=== PATIENT | male | born 1985 | race Caucasian/White ===

== ENCOUNTER 2016-05-10 17:14 | Inpatient (IN) | payer SELFPAY ==
[2016-05-10] MEDS ORDERED: traMADol HCL 50 MG TAB PO ONE (17:56)
[2016-05-10] MEDS ORDERED: KETOROLAC TROMETHAMINE INJ 60 MG/2 ML VIAL IM ONE (17:56)
[2016-05-10] MEDS ORDERED: KETOROLAC TROMETHAMINE INJ 30 MG/ML VIAL IV ONE (17:59)
--- NOTE | 2016-05-10 17:59 | ED.PDOC ---
History of Present Illness - General Chief Complaint: Dental/Mouth Stated Complaint: Pain/swelling after wisdom tooth removal Time Seen by Provider: 05/10/16 17:30 Source: patient, RN notes reviewed, Vital Signs reviewed Exam Limitations: no limitations - History of Present Illness Initial Comments: Patient reports he had his L lower wisdom tooth removed on Sunday05/07/16. Since then he has had progressively worsening pain and swelling. He is having a hard time opening his mouth due to the pain. Also having pain with swallowing and noticed his Lymphnodes are swollen on the L. Timing/Duration: gradual Severity: severe EENT Location: mouth, throat, dental Prearrival Treatment: over the counter meds - Has been alternating Ibuprofen 800mg and Tylenol 1gm Q 4 hours without relief. Improving Factors: nothing Worsening Factors: eating, other - swallowing, opening his mouth Associated Symptoms: facial pain/swelling Allergies/Adverse Reactions: Allergies Hydrocodone Allergy (Verified 05/10/16 18:05) codiene Allergy (Intermediate, Uncoded 09/12/15 14:58) Home Medications: Ambulatory Orders NK [NK] 09/12/15 Review of Systems - Review of Systems Constitutional: Denies: chills, diaphoresis, fever, malaise EENTM: States: see HPI, throat pain, throat swelling, mouth pain, mouth swelling Respiratory: States: no symptoms reported. Denies: short of breath Cardiology: States: no symptoms reported Gastrointestinal/Abdominal: Denies: nausea, vomiting Neurological: States: no symptoms reported. Denies: headache Past Medical History (General) - Patient Medical History Hx Seizures: No Hx Stroke: No Hx Dementia: No Hx Asthma: Yes - as a child Hx of COPD: No Hx Cardiac Disorders: No Hx Congestive Heart Failure: No Hx Pacemaker: No Hx Hypertension: No Hx Thyroid Disease: No Hx Diabetes: No Hx Gastroesophageal Reflux: No Hx Renal Disease: No Hx Cancer: No Hx Hepatitis C: No Hx MRSA: Yes - Wound 2015 MRSA Source:: Wound - Vaccination History Hx Tetanus, Diphtheria Vaccination: No Hx Influenza Vaccination: No Hx Pneumococcal Vaccination: No - Social History Hx Tobacco Use: Yes Hx Chewing Tobacco Use: Yes Hx Alcohol Use: Yes Hx Substance Use: No Hx Substance Use Treatment: No Hx Depression: No - Female History Patient : No Family Medical History - Family History Mother Family History: No Known Living Status: Still Living Hx Family Hypertension: Yes Physical Exam - Physical Exam General Appearance: Alert, No apparent distress, Obvious distress, Well Developed, Well Groomed, Well Hydrated, Well Nourished Ear Exam: left ear: auricle normal, canal normal, TM normal Throat Exam: other - Swelling, erythema and tenderness L peritonsilar area Neck: full range of motion, lymphadenopathy (L) - tender to palpation Cardiovascular/Respiratory: no respiratory distress Neurologic: alert, normal mood/affect, oriented x 3 Skin Exam: normal color, warm/dry Progress - Progress Progress: 05/10/16 19:18 Patient has a rapidly developing peritonsilar abscess. Will start IV Clindamycin and admit overnight for further doses of IV antibiotic, pain control and observation. Patient is agreeable. Discussed with Oksana Mc NP, Hospitalist. - EKG/XRAY/CT CT Ordered: Yes - neck: developing L peritonsilar abscess Departure - Departure Clinical Impression: Peritonsillar abscess Time of Disposition: 19:20 Disposition: Admit Patient Condition: Fair Home Medications: Ambulatory Orders NK [NK] 09/12/15 Decision To Admit - Decistion To Admit Decision to Admit Reason: Admit from ER - rapidly developing peritonsilar abscess - IV antibiotics and observation
--- NOTE | 2016-05-10 19:10 | CT ---
PROCEDURE: Soft Tissue Neck w/Contrast CLINICAL HISTORY: 30 years Male peritonsillar abscess s/p L lower wisdom tooth removal COMPARISON: None. TECHNIQUE: Contiguous axial images obtained through the neck following IV contrast. Reformatted images obtained. This exam was performed according to our department optimization program which includes automated exposure control, adjustment of the mA and/or kv according to patient size and/or use of iterative reconstruction technique. FINDINGS: The visualized intracranial structures and post septal orbits appear grossly unremarkable. The parotid glands, submandibular glands and thyroid gland appear unremarkable. The lung apices are clear. There is mild stranding around the lower pterygoid and masseter muscles on the left which could be from edema/cellulitis. There is enlargement of the palatine tonsillar tissues greater on the left. There is moderate narrowing of the nasopharynx and mild narrowing of the oropharynx secondary to mass effect. The left vallecula is nondistended likely from edema. There is mild low density in the left palatine tonsillar tissues likely from edema. There is a more well-defined low density collection in the left peritonsillar region measuring 1.2 cm in AP diameter by 0.4 cm in transverse diameter by 0.7 cm in height which could represent a developing abscess. There are changes from recent removal of the left mandibular wisdom tooth. Scattered lymph nodes in the neck likely reactive. No enlarged nodes or mass lesions are identified. Mild mucosal thickening within the maxillary sinuses and within some ethmoid air cells. IMPRESSION: Changes from recent removal of the left mandibular wisdom tooth. There is mild stranding in the soft tissues around the lower pterygoid and masseter muscles on the left likely from edema/cellulitis. There is enlargement of the palatine tonsillar tissues greater on the left with low density suggesting edema. There is a more well-defined area of low density in the left peritonsillar region suggesting a developing abscess. Electronically signed by: Taurus Morfin MD 05/10/2016 7:09 PM CDT
[2016-05-10] MEDS ORDERED: CLINDAMYCIN IV 600MG 600 MG in PREMIX BAG 1 BAG IVPB ONE (19:13)
[2016-05-10] MEDS ORDERED: CLINDAMYCIN IV 600MG 50 ML IVPB ONE (19:15)
[2016-05-10] MEDS ORDERED: fentaNYL CITRATE INJ 50 MCG/ML AMP IV ONE (19:18)
--- NOTE | 2016-05-10 20:15 | HP ---
SUPERVISING PHYSICIAN: GWEN SOUTH MD CHIEF COMPLAINT: Left jaw pain. HISTORY OF PRESENT ILLNESS: This is a 30 year-old male patient who had his left lower jaw wisdom tooth extracted on Sunday per Dr. Lewis in [place]. Over the last day or so, he has had pain and swelling in his left jaw that has increased to the point today he had a hard time opening his mouth and had a difficult swallowing and the pain had become intractable. He called Dr. Lewis' s office and they could not see him until Sunday so he came to the Emergency Room where he was evaluated. In the Emergency Room he was found to have a white count of 19.4 with a hemoglobin of 15.5 and hematocrit of 45.2. His sodium was 138, potassium 3.9, chloride 102, C02 of 29, BUN 9, creatinine 0.88 and blood sugar was 103. Bilirubin was slightly elevated at 1.2. A soft tissue neck CT per radiology interpretation states changes from recent removal of the left mandibular wisdom tooth, there is mild stranding in the soft tissues around the lower pterygoid and masseter muscles on the left likely from edema or cellulitis. There is an enlargement of the palatine tonsillar tissues greater on the left with low density suggesting edema and there is a more well- defined area of low density in the left paratonsillar region suggesting a developing abscess. He was given clindamycin in the Emergency Room and I was called for hospital admission. PAST MEDICAL HISTORY: 1. MRSA of the right knee in 2014. 2. Broken left arm as a child. PAST SURGICAL HISTORY: None. CURRENT MEDICATIONS: No outpatient medications. ALLERGIES: HYDROCODONE FAMILY HISTORY: SOCIAL HISTORY: He smokes one pack of cigarettes daily. He drinks a 12-pack of beer 5 to 6 days per week. He denies any illicit drug use. He is . He works at [employer]. REVIEW OF SYSTEMS: GENERAL: Positive for fever, denies fatigue or chills. HEENT: Positive for sinus drainage and left ear pain. Denies vision changes. RESPIRATORY: Denies shortness of breath, coughing or wheezing. CARDIAC: Denies chest pain, tachycardia or palpitations. ABDOMEN: Denies abdominal pain , nausea or vomiting or diarrhea. NEUROLOGICAL: Denies seizure, headache or dizziness. PHYSICAL EXAMINATION: VITAL SIGNS: Temperature 99.1. Pulse 96. Blood pressure 132/85. Respiratory rate 20. O2 saturation 95% on room air. GENERAL: This is a 30-year-old male patient who is lying in his hospital bed. He is in no acute distress. HEENT: Normocephalic, atraumatic. Pupils are equal and reactive. He does have swelling to the left lower mandible as well as it is warm to touch. It is also erythematous and tender to palpation. NECK: Supple without mass. No jugular venous distention. RESPIRATORY: Clear to auscultation bilaterally. CARDIAC: Regular rate and rhythm. ABDOMEN: Soft, nondistended, nontender. Bowel sounds are positive. EXTREMITIES: No cyanosis, clubbing or edema. NEUROLOGIC: Awake, alert and oriented times three. ASSESSMENT: 1. Cellulitis of the left lower jaw status post left mandibular wisdom tooth extraction. 2. Possible developing left peritonsillar abscess. 3. Left lower mandible jaw pain. 4. Tobacco abuse. 5. ETOH abuse. PLAN: We will admit the patient to the hospital. We will continue with IV fluids until tomorrow morning. Blood cultures were not obtained, so I ordered blood cultures as well as lactic acid. I will continue fentanyl for his pain at least overnight. I will also continue the clindamycin. I have started a proton pump inhibitor for ulcer prophylaxis and sequential compression devices for deep venous thrombosis prophylaxis. I will call Dr. Borrego in the morning to see if he can be seen in his clinic upon discharge. Will also need to talk to ENT. I have consulted [employer] for financial help. We will continue to monitor the patient closely and followup as needed. Dr. South is the collaborating physician and available for consultation. #[id number] [facility]
[2016-05-10] MEDS ORDERED: ACETAMINOPHEN 325 MG TAB PO PRN (21:20)
[2016-05-10] MEDS ORDERED: PANTOPRAZOLE SODIUM IV 40 MG VIAL IV SCH (21:30)
[2016-05-10] MEDS: KCL 20 MEQ/NS 1,000 ML IVS PRN (21:40)
[2016-05-10] MEDS: SODIUM CHLORIDE 0.9% (FLUSH) 10 ML SYG IV PRN (21:41)
[2016-05-10] MEDS: IV SET AND CAP CHANGE INJ INJ SCH (21:41)
[2016-05-10] MEDS: fentaNYL CITRATE INJ 50 MCG/ML AMP IV PRN (21:50)
[2016-05-11] MEDS: fentaNYL CITRATE INJ 50 MCG/ML AMP IV PRN ×10 (00:45→22:39)
[2016-05-11] MEDS ORDERED: CLINDAMYCIN IV 900MG 50 ML IVPB ONE ×4 (02:42→19:37)
[2016-05-11] MEDS: CLINDAMYCIN IV 900MG 900 MG in PREMIX BAG 1 BAG IVPB SCH ×3 (02:43→18:38)
[2016-05-11] MEDS: KCL 20 MEQ/NS 1,000 ML IVS PRN (06:30)
[2016-05-11] MEDS ORDERED: SODIUM CHLORIDE 0.9% (FLUSH) 10 ML SYG IV SCH (09:00)
[2016-05-11] MEDS ORDERED: DEXAMETHASONE INJ 10 MG/ML VIAL IV ONE (09:23)
[2016-05-11] MEDS ORDERED: SODIUM CHL 0.9% 100ML MINI-BAG 100 ML IVPB ONE ×4 (09:27→19:38)
[2016-05-11] MEDS ORDERED: AMPICILLIN & SULBACTAM SODIUM 3 GM VIAL ONE ×4 (09:27→19:39)
[2016-05-11] MEDS ORDERED: AMPICILLIN & SULBACTAM SODIUM 3 GM in SODIUM CHL 0.9% 100ML MINI-BAG 100 ML IVPB SCH (09:30)
[2016-05-11] MEDS ORDERED: THIAMINE HCL INJ 100 MG/ML VIAL ONE (10:07)
[2016-05-11] MEDS ORDERED: SODIUM CHLORIDE 0.9% 1000ML 1,000 ML ONE (10:07)
[2016-05-11] MEDS ORDERED: MULTIPLE VITAMIN 10 ML VIAL ONE (10:07)
[2016-05-11] MEDS ORDERED: SODIUM CHLORIDE 0.9% 100ML 100 ML IVPB ONE (10:07)
--- NOTE | 2016-05-11 10:11 | PN ---
SUPERVISING PHYSICIAN: Venkatesh Rodriguez MD DATE: 05/11/16 SUBJECTIVE: The patient is lying in bed. He states the fentanyl does help his pain and he feels like his jaw pain is some better than yesterday, but he continues to have difficulty swallowing as well as he is unable to eat any foods at this time. He denies chest pain, shortness of breath, nausea, vomiting , or diarrhea. OBJECTIVE: VITAL SIGNS: Afebrile. Pulse 89. Blood pressure 116/68. Respiratory rate 20. O2 saturation 96% on room air. HEENT: He continues to have some edema and erythema to the left lower jaw as well as it continues to be warm to touch as well as tender to palpation. LUNGS: Clear to auscultation bilaterally. CARDIAC: Regular rate and rhythm. ABDOMEN: Soft, nontender, nondistended. Bowel sounds are positive. NEUROLOGIC: Awake, alert and oriented times three. LYMPHATIC: He does have an anterior cervical lymph node to the left jaw that is approximately 1 cm in diameter and is tender and mobile. LABORATORY: WBC improved slightly to 15.1, hemoglobin 13.8, hematocrit 40.7. Chemistries are basically within normal limits with the exception that his bilirubin has increased to 1.6. Lactic acid 1.0. Preliminary blood cultures are negative to date. All other labs and films have been reviewed via the EMR. ASSESSMENT: 1. Cellulitis of the left lower jaw status post left mandibular wisdom tooth extraction. 2. Possible developing left peritonsillar abscess. 3. Left lower mandible jaw pain. 4. Tobacco abuse. 5. ETOH abuse. PLAN: We will continue present supportive care and monitoring. I have spoken with Dr. Patrica Monroe, ENT at [facility] in [place]. I discussed his case with her. At this point, she feels surgical intervention is not necessary and at least 48 hours of IV antibiotics is indicated. She agreed that clindamycin was an appropriate antibiotic and we will add Unasyn as well as IV steroids. I also called Dr. Borrego, his dentist in [place], to inform him of the patient's status and he agreed with the plan of care. As stated before, I will add Unasyn to his antibiotic regime. I have also given him 10 mg of Decadron. We will continue with 48 hours of antibiotic treatment. If his condition worsens, we can get another CT and Dr. Monroe will be on in [place] over the weekend and she said she would be glad to accept him to [place] if he needs surgical intervention. I will add a Strep test to his orders and repeat his lab in the morning. We will monitor his cultures closely and followup as needed. Dr. Rodriguez is the collaborating physician and available for consultation. [facility][id number] [facility]
[2016-05-11] MEDS ORDERED: FOLIC ACID INJ 5 MG/ML VIAL ONE (11:21)
[2016-05-11] MEDS: THIAMINE HCL INJ 100 MG in SODIUM CHLORIDE 0.9% 100ML 100 ML IVPB SCH (11:24)
[2016-05-11] MEDS ORDERED: MULTIPLE VITAMIN INJ 10 ML, FOLIC ACID INJ 1 MG in SODIUM CHLORIDE 0.9% 1000ML 1,000 ML IV SCH (14:30)
[2016-05-11] MEDS: AMPICILLIN & SULBACTAM SODIUM 3 GM in SODIUM CHL 0.9% 100ML MINI-BAG 100 ML IVPB SCH ×2 (16:11→21:37)
--- NOTE | 2016-05-11 17:08 | PCM.CORE ---
Physician DVT/VTE - Prophylaxis Currently: Patient already on anticoagulation therapy - Nurse DVT Assessment & Total Each Risk Factor is 1 Point: Obesity (BMI >25) DVT Assessment Score: 1 - 5 or more Very High Risk Treatments: Early Ambulation *, Sequential Compression Device
[2016-05-11] MEDS: DEXAMETHASONE INJ 4 MG/ML VIAL IV SCH (18:07)
[2016-05-11] MEDS ORDERED: PANTOPRAZOLE SODIUM IV 40 MG VIAL ONE (19:37)
[2016-05-11] MEDS ORDERED: PANTOPRAZOLE SODIUM IV 40 MG VIAL IV SCH (21:00)
[2016-05-11] MEDS: SODIUM CHLORIDE 0.9% (FLUSH) 10 ML SYG IV PRN (22:39)
[2016-05-12] MEDS: DEXAMETHASONE INJ 4 MG/ML VIAL IV SCH ×2 (00:19→05:52)
[2016-05-12] MEDS: KCL 20 MEQ/NS 1,000 ML IVS PRN (00:19)
[2016-05-12] MEDS: TEMAZEPAM 15 MG CAP PO PRN (00:25)
[2016-05-12] MEDS: fentaNYL CITRATE INJ 50 MCG/ML AMP IV PRN ×5 (02:18→15:07)
[2016-05-12] MEDS: CLINDAMYCIN IV 900MG 900 MG in PREMIX BAG 1 BAG IVPB SCH ×3 (03:04→18:31)
[2016-05-12] MEDS: AMPICILLIN & SULBACTAM SODIUM 3 GM in SODIUM CHL 0.9% 100ML MINI-BAG 100 ML IVPB SCH ×4 (04:18→22:25)
[2016-05-12] MEDS ORDERED: AMPICILLIN & SULBACTAM SODIUM 3 GM VIAL ONE ×4 (08:17→22:00)
[2016-05-12] MEDS ORDERED: THIAMINE HCL INJ 100 MG/ML VIAL ONE (08:17)
[2016-05-12] MEDS ORDERED: SODIUM CHL 0.9% 100ML MINI-BAG 100 ML IVPB ONE ×4 (08:17→22:00)
[2016-05-12] MEDS ORDERED: SODIUM CHLORIDE 0.9% 100ML 100 ML IVPB ONE (08:17)
[2016-05-12] MEDS ORDERED: CLINDAMYCIN IV 900MG 50 ML IVPB ONE ×3 (08:18→21:58)
[2016-05-12] MEDS: THIAMINE HCL INJ 100 MG in SODIUM CHLORIDE 0.9% 100ML 100 ML IVPB SCH (08:24)
[2016-05-12] MEDS: FOLIC ACID 1 MG TAB PO SCH (14:58)
[2016-05-12] MEDS: THIAMINE HCL 100 MG TAB PO SCH (14:58)
[2016-05-12] MEDS ORDERED: KETOROLAC TROMETHAMINE INJ 60 MG/2 ML VIAL IM ONE (17:13)
[2016-05-12] MEDS: SODIUM CHLORIDE 0.9% (FLUSH) 10 ML SYG IV SCH (21:18)
[2016-05-12] MEDS ORDERED: PANTOPRAZOLE SODIUM TAB 40 MG PO ONE (21:59)
[2016-05-12] MEDS: traMADol HCL 50 MG TAB PO PRN (22:27)
[2016-05-13] MEDS: CLINDAMYCIN IV 900MG 900 MG in PREMIX BAG 1 BAG IVPB SCH ×3 (03:06→18:46)
[2016-05-13] MEDS: traMADol HCL 50 MG TAB PO PRN (03:07)
[2016-05-13] MEDS: SODIUM CHLORIDE 0.9% (FLUSH) 10 ML SYG IV PRN ×4 (03:07→23:19)
[2016-05-13] MEDS: AMPICILLIN & SULBACTAM SODIUM 3 GM in SODIUM CHL 0.9% 100ML MINI-BAG 100 ML IVPB SCH ×4 (04:30→21:57)
[2016-05-13] MEDS: fentaNYL CITRATE INJ 50 MCG/ML AMP IV PRN ×6 (04:40→23:21)
[2016-05-13] MEDS: PANTOPRAZOLE SODIUM TAB 40 MG PO SCH (06:39)
[2016-05-13] MEDS ORDERED: CLINDAMYCIN IV 900MG 50 ML IVPB ONE ×2 (07:29→17:48)
[2016-05-13] MEDS ORDERED: SODIUM CHL 0.9% 100ML MINI-BAG 100 ML IVPB ONE ×3 (07:30→18:19)
[2016-05-13] MEDS ORDERED: AMPICILLIN & SULBACTAM SODIUM 3 GM VIAL ONE ×3 (07:30→18:19)
[2016-05-13] MEDS ORDERED: KETOROLAC TROMETHAMINE INJ 30 MG/ML VIAL ONE (07:49)
[2016-05-13] MEDS ORDERED: KETOROLAC TROMETHAMINE INJ 30 MG/ML VIAL IM ONE (07:55)
[2016-05-13] MEDS: THIAMINE HCL 100 MG TAB PO SCH (09:04)
[2016-05-13] MEDS: FOLIC ACID 1 MG TAB PO SCH (09:04)
--- NOTE | 2016-05-13 09:26 | PN ---
DATE: 05/12/16 SUPERVISING PHYSICIAN: Doug Monroy MD SUBJECTIVE: The patient is sitting up in his bed. He states that he feels so much better than he did yesterday. He says the steroids worked great. He is drinking fluids without problems as well as eating some small amounts of food. We discussed his discharge tomorrow and followup with Dr. Borrego as well as following up with an ENT. OBJECTIVE: VITAL SIGNS: Afebrile. Heart rate 80. Blood pressure 100/65. Respiratory rate 20. O2 saturation 97%. HEENT: He continues to have some edema to the left lower jaw as well as in his oropharynx on that left lower side. It is ammonia box tender to palpation but much improved since yesterday. LUNGS: Clear to auscultation bilaterally. CARDIAC: Regular rate and rhythm. NEUROLOGIC: Awake, alert and oriented times three. LABORATORY: Chemistry is basically within normal limits with the exception of his glucose which is slightly high at 157. WBCs have slightly increased to 18.8 and his neutrophils of 87.6. Otherwise, his CBC is basically stable. His preliminary blood cultures show no growth. All other labs and films have been reviewed via the EMR. ASSESSMENT: 1. Cellulitis of the left lower jaw status post left mandibular wisdom tooth extraction. 2. Possible developing left peritonsillar abscess. 3. Left lower mandible jaw pain. 4. Tobacco abuse. 5. ETOH abuse. PLAN: We will continue present supportive care and monitoring. He will continue with his present antibiotics. We will plan for discharge tomorrow as long as he has no further complications or increase in swelling. He finished his steroids this morning at 6:00 AM and there is continued swelling there has been no increase in swelling and it is quite painful. He has been taking Fentanyl IV as he is allergic hydrocodone and codeine. We will try to wean him off the Fentanyl as I have started him on Tramadol. I have also given him 1 IM injection of Toradol. We may need to give several additional doses of that prior to discharge. We will need to send him home on at least a week's worth of oral antibiotics. He will need a followup with Dr. Borrego in [place] next week as well as an eng referral after that. We will continue to monitor the patient closely and followup as needed. Dr. Porfirio presley is the collaborating physician and available for consultation. #[id number] [facility]
[2016-05-13] MEDS: SODIUM CHLORIDE 0.9% (FLUSH) 10 ML SYG IV SCH ×2 (09:38→21:56)
[2016-05-13] MEDS ORDERED: DEXAMETHASONE INJ 10 MG/ML VIAL ONE (13:06)
[2016-05-13] MEDS: DEXAMETHASONE INJ 4 MG/ML VIAL IV SCH (13:19)
[2016-05-13] MEDS: KETOROLAC TROMETHAMINE INJ 30 MG/ML VIAL IV SCH ×2 (15:30→21:55)
--- NOTE | 2016-05-13 16:25 | PN ---
DATE: 05/13/16 SUPERVISING PHYSICIAN: Doug Monroy M.D. SUBJECTIVE: The patient is sitting up in his hospital bed. He is in no acute distress. He denies any chest pain, shortness of breath, nausea or vomiting. We are still having some issues with his pain control and the Fentanyl only lasts for about an hour or so and he starts hurting, and the Toradol is markedly better for his pain than any of the narcotics as well as he said that the steroids have helped quite a bit also. OBJECTIVE: Temperature 97.7, pulse rate 81, blood pressure 122/84, respiratory rate 18, O2 sat 92% on room air. HEENT: He still has quite a bit of swelling along that left jaw line. It does continue to be tender to palpation but is somewhat improved since yesterday. He is having less difficulty eating and drinking. RESPIRATORY: Clear to auscultation bilaterally. CARDIAC: Regular rate and rhythm. NEUROLOGIC: He is awake, alert and oriented times three. LABORATORY: White count is slowly coming down, it is at 17.2, hemoglobin 13.3, hematocrit 39.1, platelets 249. Chemistries are within normal limits. Preliminary blood cultures continue to show no growth. MRSA surveillance shows no growth. All other labs and films have been reviewed via the EMR. ASSESSMENT: 1. Cellulitis of the left lower jaw status post left mandibular wisdom tooth extraction. 2. Possible developing left peritonsillar abscess. 3. Left lower mandible jaw pain. 4. Tobacco abuse. 5. ETOH abuse. PLAN: We will continue the present supportive care and monitoring. Will continue with his present antibiotics. He had been put on Tramadol that was fairly ineffective and Toradol worked very well. He will get 4 more scheduled doses of Toradol as well as 2 more additional doses of Decadron. Hopefully the swelling and the pain will be under control by tomorrow and he can be discharged in the next few days. We will continue to monitor the patient closely and followup as needed. Dr. Monroy is the collaborating physician available for consultation. #[id number] [facility]
[2016-05-13] MEDS: IV SET AND CAP CHANGE INJ INJ SCH (21:55)
[2016-05-13] MEDS: TEMAZEPAM 15 MG CAP PO PRN (23:19)
[2016-05-14] MEDS ORDERED: CLINDAMYCIN IV 900MG 50 ML IVPB ONE ×3 (00:01→19:31)
[2016-05-14] MEDS ORDERED: SODIUM CHL 0.9% 100ML MINI-BAG 100 ML IVPB ONE ×4 (00:01→20:01)
[2016-05-14] MEDS ORDERED: AMPICILLIN & SULBACTAM SODIUM 3 GM VIAL ONE ×4 (00:01→20:01)
[2016-05-14] MEDS: SODIUM CHLORIDE 0.9% (FLUSH) 10 ML SYG IV PRN ×6 (00:41→21:49)
[2016-05-14] MEDS: DEXAMETHASONE INJ 4 MG/ML VIAL IV SCH ×2 (00:42→13:31)
[2016-05-14] MEDS: CLINDAMYCIN IV 900MG 900 MG in PREMIX BAG 1 BAG IVPB SCH ×3 (02:49→19:36)
[2016-05-14] MEDS: fentaNYL CITRATE INJ 50 MCG/ML AMP IV PRN ×2 (03:17→09:45)
[2016-05-14] MEDS: KETOROLAC TROMETHAMINE INJ 30 MG/ML VIAL IV SCH ×2 (03:52→09:50)
[2016-05-14] MEDS: AMPICILLIN & SULBACTAM SODIUM 3 GM in SODIUM CHL 0.9% 100ML MINI-BAG 100 ML IVPB SCH ×4 (03:52→21:48)
[2016-05-14] MEDS: PANTOPRAZOLE SODIUM TAB 40 MG PO SCH (06:16)
[2016-05-14] MEDS: traMADol HCL 50 MG TAB PO PRN (08:01)
[2016-05-14] MEDS: THIAMINE HCL 100 MG TAB PO SCH (08:54)
[2016-05-14] MEDS: SODIUM CHLORIDE 0.9% (FLUSH) 10 ML SYG IV SCH ×2 (08:54→20:31)
[2016-05-14] MEDS: FOLIC ACID 1 MG TAB PO SCH (08:54)
[2016-05-14] MEDS ORDERED: KETOROLAC TROMETHAMINE 10 MG TAB PO PRN (10:04)
[2016-05-14] MEDS ORDERED: HYDROcodone 5MG/APAP 325MG 1 EA TAB PO ONE (10:26)
[2016-05-14] MEDS ORDERED: PROCHLORPERAZINE INJ 10 MG/2 ML VIAL IV PRN ×2 (10:26→11:28)
--- NOTE | 2016-05-14 12:35 | PN ---
DATE: 05/14/16 SUPERVISING PHYSICIAN: Doug Monroy M.D. SUBJECTIVE: The patient is sitting up in bed. He is watching television. We had a long discussion about his pain medication. He said the most effective pain relief is from the Toradol. The Tramadol does very little to relieve the pain. The steroids also help a lot. He does not like the Fentanyl but it is the only thing that gives him relief enough to eat, so he usually asks for it before his meals. We discussed at length his adverse reaction to Hydrocodone in the past. He said he has occasionally taken half of a 10/325 Gustavus and does not cause any problems. The problems he has had in the past are mostly due to nausea and a headache. OBJECTIVE: VITAL SIGNS: He is afebrile, heart rate 78, blood pressure 102/66 but it has gotten as high at 150/92 when he was in pain, respiratory rate 20, O2 sat 96% on room air. HEENT: There is still quite a bit of swelling to the lateral left jaw line and it is still quite tender to palpation. He can open his mouth much better than he has been but it is still very difficult with chewing and swallowing due to the pain. RESPIRATORY: Clear to auscultation bilaterally. CARDIAC: Regular rate and rhythm. NEUROLOGIC: Awake, alert and oriented times three. LABORATORY: White count has slightly decreased to 15.7 with neutrophil of 84.9. Metabolic panel is basically within normal limits with the exception of his glucose is slightly elevated most likely due to the steroids. All other labs and films have been reviewed via the EMR. ASSESSMENT: 1. Cellulitis of the left lower jaw status post left mandibular wisdom tooth extraction. 2. Possible developing left peritonsillar abscess. 3. Left lower mandible jaw pain. 4. Tobacco abuse. 5. ETOH abuse. PLAN: He has completed his 3 days of IV Toradol and now we will have to change him to 2 additional days of p.o. Toradol. He will have a max of 8 additional doses of Toradol so he does not have more than 5 days of treatment. I will check his BMP and CBC in the morning. I did not discontinue the Tramadol though I do not believe that it is working very well. His last Decadron injection is at 1:00 today and he will need to go home on at least a Medrol Dosepak, but I would like to keep from starting his steroids until tomorrow morning. I am going to give him a trial of Gustavus which is a 5/325. We will give him 1 dose. I have ordered some Compazine in case he gets nauseated with it. I think his pain could be very well controlled if he can tolerate a small dose of Gustavus. We will watch his reactions closely after administration and will go from there. He will not be discharged until tomorrow or the next day and we will see how he responds clinically. He will need a followup with Dr. Lazo, ENT in [place], as well as Dr. Gonzalez in [place]. In the meantime, we will continue to monitor him closely and followup as needed. Dr. Monroy is the collaborating physician available for consultation. #[id number] [facility]
[2016-05-14] MEDS ORDERED: HYDROcodone 5MG/APAP 325MG 1 EA TAB PO PRN (14:30)
[2016-05-14] MEDS: HYDROcodone 7.5MG/APAP 325MG 1 EA TAB PO PRN ×3 (14:35→23:33)
[2016-05-15] MEDS ORDERED: CLINDAMYCIN IV 900MG 50 ML IVPB ONE (01:13)
[2016-05-15] MEDS ORDERED: SODIUM CHL 0.9% 100ML MINI-BAG 100 ML IVPB ONE ×2 (01:14→10:20)
[2016-05-15] MEDS ORDERED: AMPICILLIN & SULBACTAM SODIUM 3 GM VIAL ONE ×2 (01:14→10:20)
[2016-05-15] MEDS: CLINDAMYCIN IV 900MG 900 MG in PREMIX BAG 1 BAG IVPB SCH (03:32)
[2016-05-15] MEDS: SODIUM CHLORIDE 0.9% (FLUSH) 10 ML SYG IV PRN (03:32)
[2016-05-15] MEDS: HYDROcodone 7.5MG/APAP 325MG 1 EA TAB PO PRN ×2 (03:36→09:17)
[2016-05-15] MEDS: AMPICILLIN & SULBACTAM SODIUM 3 GM in SODIUM CHL 0.9% 100ML MINI-BAG 100 ML IVPB SCH ×2 (04:37→10:20)
[2016-05-15] MEDS: PANTOPRAZOLE SODIUM TAB 40 MG PO SCH (06:16)
[2016-05-15 06:33] VITALS: O2SAT 98
[2016-05-15] MEDS: THIAMINE HCL 100 MG TAB PO SCH (09:14)
[2016-05-15] MEDS: FOLIC ACID 1 MG TAB PO SCH (09:14)
[2016-05-15] MEDS: SODIUM CHLORIDE 0.9% (FLUSH) 10 ML SYG IV SCH (09:16)
[2016-05-15 10:09] VITALS: BP 144/95; TEMP 97.8
--- NOTE | 2016-05-15 10:21 | DS ---
DISCHARGE DIAGNOSIS: 1. Probable left peritonsillar abscess with drainage, requiring parenteral antibiotic therapy and no culture results. 2. Cellulitis of the left lower jaw status post left lower third molar extraction one week prior to discharge 3. Left lower mandible jaw pain. 4. History of tobacco abuse, encouraged to stop. 5. History of ETOH use. HISTORY OF PRESENT ILLNESS: This 30-year-old, white male was admitted to the hospital from the Emergency Room noting progressive and now worsening pain and swelling in the left lower jaw after third molar extraction on Sunday by Dr. Borrego, dentist in [place], [place]. The swelling has been getting worse and the pain has been unbearable. In the Emergency Room, he was found to have an elevated white count of 19,400 and a soft tissue neck CT showed recent removal of the left mandibular wisdom tooth with inflammatory stranding in the soft tissues around some of the muscles, probably secondary to a cellulitis presentation. Possible left peritonsillar abscess was also to be considered. Started on clindamycin as well as Unasyn for treatment of the significant infectious condition. LABORATORY: White count initially 19,400 with 79% neutrophils, decreasing to 14 ,700 with 69% neutrophils. Hemoglobin 13.7. Chemistries did show potassium decreasing to 3.5 while BUN stayed normal and creatinine 0.7. Glucose 92 at discharge. Calcium 8.7. Blood cultures and nasal MRSA surveillance culture were negative. No cultures obtained from the molar extraction site noted. RADIOLOGY: Soft tissue of the neck did show evidence of recent left mandibular wisdom tooth extraction with inflammatory stranding around the muscles in the region, possibly secondary to cellulitis. Also, some increasing palatine tonsillar tissue edema was evident, possibly describing an early left peritonsillar abscess. HOSPITAL COURSE: The patient was feeling much improved by the day of discharge and was ready for outpatient followup. On the evening before discharge, he noted some drainage from the region of the left lower molar extraction which stopped by the morning of discharge. Slight bleeding also had been evident. Significant decrease in the swelling of the left side of the neck was also evident clinically. The patient was able to eat and was able to have much improved relief of pain. He is utilizing some low dose [place] and no evidence of allergic symptoms were evident. He was ready for discharge at the time of discharge and have outpatient followup. His condition is discussed with Dr. Borrego, dentist in [place]. PLAN: The patient is discharged home to have followup with Dr. Borrego at the [place] dentist office at 3:30 PM this afternoon. Observe closely for increased swelling, pain, trouble breathing or swallowing as well as bleeding or fever. Return if not improving. He is to continue with Augmentin 875 mg b.i.d. for an additional 10 days. Close followup with ear, nose, and throat clinic if not improving is very important. #[id number] [facility]
== END 2016-05-15 11:07 | disposition home or self-care (01) | DRG 603 ==
LOC: ER 17:14 → OBSVTOIN 20:14 → MS 20:14
PROVIDERS: ADMIT Nurse Practitioner Acute Care; ATTEND Emergency Medicine
PROC: BW2FYZZ Computerized Tomography (CT Scan) of Neck using Other Contrast (ICD-10-PCS; principal; 2016-05-10)
DX: L03.211 Cellulitis of face (principal); J36 Peritonsillar abscess; F10.10 Alcohol abuse, uncomplicated; F17.210 Nicotine dependence, cigarettes, uncomplicated; Z98.890 Other specified postprocedural states; Z88.5 Allergy status to narcotic agent; Z86.14 Personal history of Methicillin resistant Staphylococcus aureus infection

== ENCOUNTER 2016-10-23 12:29 | Emergency (ER) | payer SELFPAY ==
[2016-10-23 12:51] VITALS: TEMP 97; O2SAT 98
[2016-10-23] MEDS ORDERED: NITROGLYCERIN 0.4 MG 25 EA TAB SL ONE (12:53)
[2016-10-23] MEDS ORDERED: ONDANSETRON INJ 4 MG/2 ML VIAL IV ONE (12:53)
[2016-10-23] MEDS ORDERED: SODIUM CHLORIDE 0.9% (FLUSH) 10 ML SYG IV PRN (12:53)
[2016-10-23] MEDS ORDERED: ASPIRIN TABLET 325 MG TAB PO ONE (12:53)
--- NOTE | 2016-10-23 13:08 | RAD ---
EXAM DESCRIPTION: Chest,1 View CLINICAL HISTORY: 31 years Male, CHEST PAIN COMPARISON: 11/05/2010 IMPRESSION: Heart size and pulmonary vascularity are within normal limits. There is no airspace consolidation, pleural effusion, or pneumothorax. No acute osseous abnormality. Electronically signed by: Andriy Hawkins MD 10/23/2016 1:06 PM CDT
[2016-10-23] MEDS ORDERED: SODIUM CHLORIDE 0.9% 1000ML 1,000 ML IVS ONE (13:25)
--- NOTE | 2016-10-23 13:32 | ED.PDOC ---
History of Present Illness - General Chief Complaint: Chest Pain/SC Stated Complaint: CHEST PAINS, PALPATATIONS Time Seen by Provider: 10/23/16 13:20 Source: patient Exam Limitations: no limitations - History of Present Illness Initial Comments: PT REPORTS ONSET OF LEFT SIDED CHEST PAIN AND PALPITATIONS DESCRIBED HIS HEART POUNDING THIS AM. PT DENIES RADIATION, SOB, BUT DOES COMPLAIN OF NAUSEA AND DIZZINESS. Timing/Duration: 4-6 hours Severity: moderate Location: substernal Activities at Onset: none Prior Chest Pain/Cardiac Workup: no prior chest pain, no prior cardiac workup Improving Factors: nothing Worsening Factors: nothing Nitro Today/Relief: no nitro taken today Aspirin Treatment Today: no aspirin today Associated Symptoms: nausea/vomiting Allergies/Adverse Reactions: Allergies Hydrocodone Adverse Reaction (Mild, Verified 10/23/16 12:46) nausea, headache Home Medications: Ambulatory Orders Ibuprofen 800 mg PO Q8HR PRN #30 tab 10/23/16 Review of Systems - Review of Systems Constitutional: Denies: chills, fever EENTM: Denies: ear pain, nose congestion Respiratory: Denies: cough, short of breath Cardiology: States: see HPI, chest pain, palpitations Gastrointestinal/Abdominal: Denies: abdominal pain, diarrhea, vomiting Genitourinary: Denies: dysuria, frequency Musculoskeletal: Denies: joint pain, joint swelling Skin: Denies: dryness, lesions Neurological: States: no symptoms reported Endocrine: States: no symptoms reported Past Medical History (General) - Patient Medical History Hx Seizures: No Hx Stroke: No Hx Dementia: No Hx Asthma: No Hx of COPD: No Hx Cardiac Disorders: No Hx Congestive Heart Failure: No Hx Pacemaker: No Hx Hypertension: No Hx Thyroid Disease: No Hx Diabetes: No Hx Gastroesophageal Reflux: No Hx Renal Disease: No Hx Cancer: No Hx of HIV: No Hx Hepatitis C: No Hx MRSA: Yes MRSA Source:: Wound Surgical History: no surgical history - Vaccination History Hx Tetanus, Diphtheria Vaccination: No Hx Influenza Vaccination: No Hx Pneumococcal Vaccination: No Immunizations Up to Date: No - Social History Hx Tobacco Use: Yes - 1 PPD Hx Chewing Tobacco Use: No Hx Alcohol Use: Yes - 12 PACK A DAY Hx Substance Use: No Hx Substance Use Treatment: No Hx Depression: No Feels Threatened In Home Enviroment: No Feels Threatened In a Relationship: No Hx Physical Abuse: No Hx Emotional Abuse: No Hx Suspected Abuse: No - Female History Patient is a Female of Child Bearing Age (10 -59 yrs old): No Patient : No Family Medical History - Family History Mother Family History: No Known Living Status: Still Living Hx Family Hypertension: Yes Physical Exam - Physical Exam General Appearance: Alert, No apparent distress, Well Developed, Well Groomed, Well Hydrated Eyes, Ears, Nose, Throat Exam: normal ENT inspection Neck: normal inspection Respiratory: lungs clear, normal breath sounds, no respiratory distress Cardiovascular/Chest: regular rate, rhythm, no murmur Gastrointestinal/Abdominal: non tender, soft Extremity: normal inspection, no pedal edema Neurologic: no motor/sensory deficits, alert, normal mood/affect, oriented x 3 Skin Exam: normal color, warm/dry Progress - Progress Progress: 10/23/16 13:20 PT REPORTS NO IMPROVEMENT IN PAIN AFTER SL NTG, IV NS AND IV ATIVAN ORDERED. 10/23/16 14:58 PT REPORTS COMPLETE RESOLUTION OF CHEST PAIN, PALPITATIONS AND DIZZINESS AFTER IV NS, IV ATIVAN. - Results/Orders Results/Orders: 10/23/16 12:53 IV Care:Saline Lock per Protoc QSHIFT Telemetry .ONCE Sodium Chloride 0.9% (Flush) [Saline Flush Syringe] 10 ml IV PRN PRN EKG Stat Pulse Ox Stat Laboratory Results - last 24 hr 10/23/16 10/23/16 10/23/16 12:52 13:30 14:13 WBC 9.4 RBC 4.99 Hgb 15.9 Hct 45.8 MCV 91.7 MCH 31.9 H MCHC 34.8 RDW 12.4 Plt Count 290 MPV 7.5 Absolute Neuts (auto) 6.80 Absolute Lymphs (auto) 1.50 Absolute Monos (auto) 0.90 H Absolute Eos (auto) 0.10 Absolute Basos (auto) 0.10 Neutrophils % 72.7 Lymphocytes % 15.6 L Monocytes % 9.6 H Eosinophils % 1.3 Basophils % 0.8 PT 10.0 INR 0.880 PTT (SP) 29.8 Sodium 137 Potassium 3.8 Chloride 101 Carbon Dioxide 26 Anion Gap 13.8 BUN 10 Creatinine 0.65 BUN/Creatinine Ratio 15.4 Random Glucose 104 Serum Osmolality 273.2 L Calcium 9.8 Magnesium 1.7 L Creatine Kinase 52 CK-MB (CK-2) 1.1 CK-MB (CK-2) % Not Reportable Troponin I < 0.02 Salicylates < 4.0 Urine Opiates Screen Negative Acetaminophen < 10.0 L Urine Barbiturates Negative Ur Phencyclidine Scrn Negative U Amphetamin/Meth Scrn Negative U Benzodiazepines Scrn Negative U Cocaine Metab Screen Negative U Cannabinoids Screen Negative Ethyl Alcohol < 5.40 - EKG/XRAY/CT EKG: Sinus - @99BPM, NL INTERVALS, NL AXIS, no ST T wave changes - NO OLD EKG FOR COMPARISON XRAY: chest - NO ACUTE FINDINGS PER RAD Departure - Departure Clinical Impression: Palpitations, Chest pain, Leukocytosis, Tobacco abuse, Alcohol abuse, Dizziness Time of Disposition: 15:01 Disposition: Discharge to Home or Self Care Condition: Good Departure Forms: ED Discharge - Pt. Copy, Patient Portal Self Enrollment Instructions: DI for Atypical Chest Pain, DI for Dizziness-Nonvertigo Diet: resume usual diet Activity: increase activity as tolerated Referrals: [facility] [Provider Group] - 1-5 Days Prescriptions: Ibuprofen 800 mg PO Q8HR PRN #30 tab PRN Reason: Pain Home Medications: Ambulatory Orders Ibuprofen 800 mg PO Q8HR PRN #30 tab 10/23/16
[2016-10-23 14:22] VITALS: BP 133/78
== END 2016-10-23 15:16 | disposition home or self-care (01) ==
LOC: ER 12:29
DX: R00.2 Palpitations (principal); D72.829 Elevated white blood cell count, unspecified; R42 Dizziness and giddiness; R07.9 Chest pain, unspecified; F10.10 Alcohol abuse, uncomplicated; F17.200 Nicotine dependence, unspecified, uncomplicated; Z88.6 Allergy status to analgesic agent
CPT/HCPCS: 71010; 80048; 80301; 80320; 80329; 82550; 82553; 84484; 85025; 85610; 85730; 93005; J2060; J2405; J7030

== ENCOUNTER 2019-04-14 12:47 | Emergency (ER) | payer SELFPAY ==
[2019-04-14 13:05] VITALS: TEMP 97.8
[2019-04-14] MEDS ORDERED: SODIUM CHLORIDE 0.9% (FLUSH) 10 ML SYG IV PRN (13:49)
[2019-04-14] MEDS ORDERED: SODIUM CHLORIDE 0.9% 1000ML 1,000 ML IVS ONE (13:49)
--- NOTE | 2019-04-14 15:22 | ED.PDOC ---
History of Present Illness - General Chief Complaint: General Stated Complaint: "dizziness and shaky" Time Seen by Provider: 04/14/19 13:49 Source: patient - History of Present Illness Initial Comments: 33 yo male who presents with cc of lightheadedness and shaking. Reports onset approx 11:40 am just before eating lunch. 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 Also reports eating a good breakfast. States at 11:40 am felt suddenly lightheaded like he might pass out, also felt cool and clammy and nauseous w/o emesis. Sx's worsened with activity. Also reported tight throat but no pain or dyspnea. He came to the ED for further eval. No hx of similar sx's reported. Denies any chest pain, fevers, chills, abd pain, weakness, numbness, cough. Does not regularly see a doctor but no known medical conditions. Allergies/Adverse Reactions: Allergies Hydrocodone Adverse Reaction (Mild, Verified 10/23/16 12:46) nausea, headache Home Medications: Ambulatory Orders Multiple Vitamins W/ Minerals [Multivitamin Adults] 1 tab PO DAILY 04/14/19 Review of Systems - Review of Systems Review of Systems: 04/14/19 15:22 as per HPI All other Systems: Reviewed and Negative Past Medical History (General) - Patient Medical History Hx Seizures: No Hx Stroke: No Hx Dementia: No Hx Asthma: No Hx of COPD: No Hx Cardiac Disorders: No Hx Congestive Heart Failure: No Hx Pacemaker: No Hx Hypertension: No Hx Thyroid Disease: No Hx Diabetes: No Hx Gastroesophageal Reflux: No Hx Renal Disease: No Hx Cancer: No Hx of HIV: No Hx Hepatitis C: No Hx MRSA: Yes MRSA Source:: Wound Surgical History: no surgical history - Vaccination History Hx Tetanus, Diphtheria Vaccination: No Hx Influenza Vaccination: No Hx Pneumococcal Vaccination: No - Social History Hx Tobacco Use: Yes - 1 PPD Hx Chewing Tobacco Use: No Hx Alcohol Use: Yes - 12 PACK A DAY Hx Substance Use: No Hx Substance Use Treatment: No Hx Depression: No Hx Physical Abuse: No Hx Emotional Abuse: No Hx Suspected Abuse: No - Activities of Daily Living Hospice Agency (if applicable):: None - Female History Patient is a Female of Child Bearing Age (10 -59 yrs old): No Patient : No - Triage Comment ED Triage Comment: pt voices dizzinesss and shakiness with difficulty swallowing. Family Medical History - Family History Mother Family History: No Known Living Status: Still Living Hx Family Hypertension: Yes Physical Exam - Physical Exam General Appearance: Alert, Comfortable, No apparent distress Eye Exam: bilateral normal Ears, Nose, Throat: hearing grossly normal, normal ENT inspection, normal ph arynx Neck: non-tender, full range of motion, supple, normal inspection Respiratory: lungs clear, normal breath sounds, no respiratory distress, no ac cessory muscle use Cardiovascular/Chest: normal peripheral pulses, regular rate, rhythm, no edema, no gallop, no JVD, no murmur Peripheral Pulses: radial,right: 2+, radial,left: 2+ Gastrointestinal/Abdominal: non tender, soft, no organomegaly Back Exam: normal inspection, no CVA tenderness, no vertebral tenderness Extremity: normal range of motion, non-tender, normal inspection, no pedal edema, no calf tenderness, normal capillary refill 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 Advised rest, slow return to activity, good hydration, regular breaks at work, avoid overexertion, heat exhaustion. F/u closely with PCP. Oneil Morgan MD Billing #[id number] 04/14/19 13:49 IV Care:Saline Lock per Protoc QSHIFT Telemetry .ONCE Sodium Chloride 0.9% (Flush) [Saline Flush Syringe] 10 ml IV PRN PRN 04/14/19 14:00 EKG STAT 04/14/19 14:07 GROUP A STREP SCREEN, RAPID Stat 04/14/19 15:18 Chest,1 View [RAD] Stat 04/15/19 09:00 Pulse Ox Daily Laboratory Results - last 24 hr 04/14/19 04/14/19 04/14/19 14:00 14:00 14:15 WBC 9.7 RBC 5.00 Hgb 16.4 Hct 46.8 MCV 93.6 MCH 32.8 H MCHC 35.0 RDW 12.1 Plt Count 280 MPV 7.3 L Absolute Neuts (auto) 7.50 H Absolute Lymphs (auto) 1.30 Absolute Monos (auto) 0.80 Absolute Eos (auto) 0.10 Absolute Basos (auto) 0.00 Neutrophils % 77.2 Lymphocytes % 12.9 L Monocytes % 8.7 Eosinophils % 0.9 L Basophils % 0.3 Sodium 139 Potassium 4.1 Chloride 101 Carbon Dioxide 28 Anion Gap 14.1 BUN 13 Creatinine 0.79 BUN/Creatinine Ratio 16.5 Random Glucose 106 H Serum Osmolality 278.1 Calcium 10.5 H Magnesium 1.9 Total Bilirubin 0.8 AST 34 ALT 42 Alkaline Phosphatase 92 B-Natriuretic Peptide < 5.0 Serum Total Protein 8.3 H Albumin 4.9 Globulin 3.4 Albumin/Globulin Ratio 1.4 TSH 1.33 Urine Color Yellow Urine Appearance Clear Urine pH 7.0 Ur Specific Thrall 1.015 Urine Protein Negative Urine Glucose (UA) Negative Urine Ketones Negative Urine Blood Negative Urine Nitrite Negative Urine Bilirubin Negative Urine Urobilinogen 0.2 Ur Leukocyte Esterase Negative Urine RBC 0-1 Urine WBC 0 Ur Epithelial Cells 0 Urine Bacteria 0 - EKG/XRAY/CT EKG: Sinus - NSR, HR 80, no ST elev's or q waves, axis & intervals normal, appears unchanged from 10/23/16 EKG XRAY: chest - no acute processes per my read Departure - Departure Clinical Impression: Near syncope Time of Disposition: 15:28 Disposition: Discharge to Home or Self Care Condition: Good Departure Forms: ED Discharge - Pt. Copy, Patient Portal Self Enrollment Diet: resume usual diet Activity: increase activity as tolerated Home Medications: Ambulatory Orders Multiple Vitamins W/ Minerals [Multivitamin Adults] 1 tab PO DAILY 04/14/19 Additional Instructions: Gradual return to normal activity as tolerated. Remain well-hydrated and avoid overexertion or prolonged exposure to heat. Take regular breaks as needed to avoid overexertion or return of symptoms. Return if you develop chest pain, shortness of breath, fevers, or other concerning symptoms. Follow up closely with your primary care doctor for further evaluation.
--- NOTE | 2019-04-14 15:41 | RAD ---
EXAM DESCRIPTION: Chest,1 View CLINICAL HISTORY: 33 years Male, near syncope COMPARISON: Previous chest x-ray October 23, 2016 TECHNIQUE: AP portable chest. FINDINGS: Heart size is normal with normal pulmonary vascularity. No consolidating infiltrate. No pulmonary mass or worrisome nodule. No pneumothorax or pleural effusion. Bones are unremarkable. IMPRESSION: No acute process is identified in the chest. Electronically signed by: Nate Butts MD 04/14/2019 3:40 PM CDT
[2019-04-14 15:47] VITALS: BP 130/92; O2SAT 99
== END 2019-04-14 15:35 | disposition home or self-care (01) ==
LOC: ER 12:47
DX: R55 Syncope and collapse (principal); R42 Dizziness and giddiness; Z87.891 Personal history of nicotine dependence; Z88.5 Allergy status to narcotic agent
CPT/HCPCS: 71045; 80053; 81001; 83735; 83880; 84443; 85025; 87502; 93005; J7030

== ENCOUNTER 2019-09-07 12:42 | Emergency (ER) | payer SELFPAY ==
[2019-09-07] MEDS ORDERED: methylPREDNISolone SODIUM SUC 40 MG/ML VIAL IV ONE (12:49)
[2019-09-07] MEDS ORDERED: SODIUM CHLORIDE 0.9% 1000ML 1,000 ML IVS ONE ×3 (12:50→15:38)
--- NOTE | 2019-09-07 13:10 | RAD ---
EXAM: X-RAY, Chest (1 View) HISTORY: tremulous, tachycardia. COMPARISON: Chest x-ray from 04/14/2019. TECHNIQUE: AP view of the chest. FINDINGS: Lungs: The lungs are clear. Pleural space: No pneumothorax or pleural effusion is present. Heart: The heart is normal in size. Bones: No acute bone abnormality. IMPRESSION: No acute cardiopulmonary finding. Electronically signed by: Sudeep Hadley MD 09/07/2019 1:08 PM CDT
--- NOTE | 2019-09-07 16:02 | ED.PDOC ---
History of Present Illness - General Chief Complaint: General Stated Complaint: Pt got hot in the attic, shaking, LH/dizziness Time Seen by Provider: 09/07/19 12:48 Source: patient Exam Limitations: no limitations - History of Present Illness Initial Comments: The patient is a 33-year-old male presented emergency room secondary to a feeling of tremulousness and generalized weakness along with anxiety and feeling cold. This started about 1 to 2 hours prior to arrival. The patient had previously been working up in an attic where he was very quiet for extended period of time. He did sweat copiously. He was feeling weak and dizzy when he crawled out of the attic. Upon arrival here the patient is generally tremulous. He is alert and oriented. No focal neurological deficits. Skin is cool. Mucous membranes are fairly dry. Timing/Duration: 1-3 hours Severity: moderate Improving Factors: nothing Worsening Factors: nothing Associated Symptoms: diaphoresis, headaches, loss of appetite, malaise, nausea/vomiting, shortness of breath, weakness Allergies/Adverse Reactions: Allergies Hydrocodone Adverse Reaction (Mild, Verified 09/07/19 13:27) nausea, headache Home Medications: Ambulatory Orders Multiple Vitamins W/ Minerals [Multivitamin Adults] 1 tab PO DAILY 04/14/19 Review of Systems - Review of Systems Constitutional: States: diaphoresis - Now he is no longer sweating, malaise, weakness EENTM: States: see HPI Respiratory: States: no symptoms reported Cardiology: States: see HPI - He feels like his heart is racing Gastrointestinal/Abdominal: States: nausea Genitourinary: States: no symptoms reported Musculoskeletal: States: no symptoms reported Skin: States: no symptoms reported Neurological: States: headache, tingling, tremors, weakness Endocrine: States: excessive sweating Hematologic/Lymphatic: States: no symptoms reported All other Systems: No Change from Baseline Past Medical History (General) - Patient Medical History Hx Seizures: No Hx Stroke: No Hx Dementia: No Hx Asthma: No Hx of COPD: No Hx Cardiac Disorders: No Hx Congestive Heart Failure: No Hx Pacemaker: No Hx Hypertension: No Hx Thyroid Disease: No Hx Diabetes: No Hx Gastroesophageal Reflux: No Hx Renal Disease: No Hx Cancer: No Hx of HIV: No Hx Hepatitis C: No Hx MRSA: Yes MRSA Source:: Wound Surgical History: no surgical history - Vaccination History Hx Tetanus, Diphtheria Vaccination: No Hx Influenza Vaccination: No Hx Pneumococcal Vaccination: No - Social History Hx Tobacco Use: Yes Hx Chewing Tobacco Use: No Hx Alcohol Use: Yes Hx Substance Use: No Hx Substance Use Treatment: No Hx Depression: No Hx Physical Abuse: No Hx Emotional Abuse: No Hx Suspected Abuse: No - Female History Patient is a Female of Child Bearing Age (10 -59 yrs old): No Patient : No Family Medical History - Family History Mother Family History: No Known Living Status: Still Living Hx Family Hypertension: Yes Physical Exam - Physical Exam General Appearance: Alert, Anxious, Ill Appearing Eye Exam: bilateral normal Ears, Nose, Throat: hearing grossly normal, other - Mucous membranes are fairly dry Neck: full range of motion, supple Respiratory: lungs clear, normal breath sounds, no respiratory distress, no accessory muscle use Cardiovascular/Chest: normal peripheral pulses, no edema, tachycardia Peripheral Pulses: radial,right: 2+, radial,left: 2+ Gastrointestinal/Abdominal: non tender, soft Rectal Exam: deferred Back Exam: no CVA tenderness, no vertebral tenderness Extremity: normal range of motion, non-tender, normal inspection, no pedal edema, normal capillary refill 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, alert, normal mood/affect, oriented x 3 Skin Exam: pallor - cool Comments: Vital Signs - 24 hr 09/07/19 09/07/19 09/07/19 12:45 12:48 13:19 Temperature 98.2 F Pulse Rate [ 125 H 125 H 103 H Pulse ox] Respiratory 22 22 16 Rate Blood Pressure 179/89 127/86 [R arm] O2 Sat by Pulse 100 98 Oximetry 09/07/19 09/07/19 13:30 13:31 Temperature Pulse Rate [ 106 H 108 H Pulse ox] Respiratory 18 20 Rate Blood Pressure 135/97 133/92 [R arm] O2 Sat by Pulse 98 97 Oximetry Progress - Progress Progress: 09/07/19 16:05 The patient is a 33-year-old male presented emergency room with what appears to be significant heat exhaustion. He is doing better after a couple of liters of IV fluid. Laboratory work is reassuring. Symptoms are improving. Tachycardia is improving. The patient needs to avoid overheating for the next few weeks. He needs to increase his fluid intake. He tested negative for coronavirus today. Keep routine follow-up with primary care doctor otherwise. ER warnings are given. [email or web address] - Results/Orders Results/Orders: Coronavirus test is negative. Chest x-ray is clear. Laboratory Tests 09/07/19 09/07/19 09/07/19 13:13 13:13 13:13 WBC 11.8 H RBC 5.13 Hgb 16.6 Hct 48.1 MCV 93.9 MCH 32.3 H MCHC 34.4 RDW 12.3 Plt Count 321 MPV 7.4 Absolute Neuts (auto) 8.30 H Absolute Lymphs (auto) 2.10 Absolute Monos (auto) 1.10 H Absolute Eos (auto) 0.20 Absolute Basos (auto) 0.10 Neutrophils % 70.3 Lymphocytes % 18.1 L Monocytes % 9.5 H Eosinophils % 1.6 Basophils % 0.5 PT INR PTT (SP) Sodium 138 Potassium 4.1 Chloride 100 L Carbon Dioxide 26 Anion Gap 16.1 BUN 13 Creatinine 0.80 BUN/Creatinine Ratio 16.3 POC Glucose 95 Random Glucose 104 Serum Osmolality 276.1 Lactic Acid Calcium 9.8 Magnesium Total Bilirubin 0.9 AST 40 ALT 47 Alkaline Phosphatase 101 Creatine Kinase 72 CK-MB (CK-2) 1.2 CK-MB (CK-2) % Not Reportable Troponin I < 0.02 B-Natriuretic Peptide < 15.0 Serum Total Protein 8.3 H Albumin 5.1 Globulin 3.2 Albumin/Globulin Ratio 1.6 TSH 09/07/19 09/07/19 09/07/19 13:13 13:13 13:44 WBC RBC Hgb Hct MCV MCH MCHC RDW Plt Count MPV Absolute Neuts (auto) Absolute Lymphs (auto) Absolute Monos (auto) Absolute Eos (auto) Absolute Basos (auto) Neutrophils % Lymphocytes % Monocytes % Eosinophils % Basophils % PT 9.6 INR < 1.00 PTT (SP) 24.3 Sodium Potassium Chloride Carbon Dioxide Anion Gap BUN Creatinine BUN/Creatinine Ratio POC Glucose Random Glucose Serum Osmolality Lactic Acid 1.2 Calcium Magnesium 1.8 Total Bilirubin AST ALT Alkaline Phosphatase Creatine Kinase CK-MB (CK-2) CK-MB (CK-2) % Troponin I B-Natriuretic Peptide Serum Total Protein Albumin Globulin Albumin/Globulin Ratio TSH 1.50 Departure - Departure Clinical Impression: Heat exhaustion, anhydrotic, initial encounter Disposition: Discharge to Home or Self Care Condition: Fair Departure Forms: ED Discharge - Pt. Copy, Patient Portal Self Enrollment Instructions: Heat Exhaustion and Heat Stroke (DC) Diet: regular diet Activity: increase activity as tolerated Home Medications: Ambulatory Orders Multiple Vitamins W/ Minerals [Multivitamin Adults] 1 tab PO DAILY 04/14/19 Additional Instructions: The patient is a 33-year-old male presented emergency room with what appears to be significant heat exhaustion. He is doing better after a couple of liters of IV fluid. Laboratory work is reassuring. Symptoms are improving. Tachycardia is improving. The patient needs to avoid overheating for the next few weeks. He needs to increase his fluid intake. He tested negative for cor onavirus today. Keep routine follow-up with primary care doctor otherwise. ER warnings are given.
[2019-09-07 16:37] VITALS: BP 125/75; TEMP 97.8; O2SAT 98
== END 2019-09-07 16:30 | disposition home or self-care (01) ==
LOC: ER 12:42
DX: T67.3XXA Heat exhaustion, anhydrotic, initial encounter (principal); Z11.59 Encounter for screening for other viral diseases; Z88.5 Allergy status to narcotic agent; Z87.891 Personal history of nicotine dependence; Y92.89 Other specified places as the place of occurrence of the external cause
CPT/HCPCS: 36415; 36416; 71045; 80053; 82550; 82553; 82948; 83605; 83735; 83880; 84443; 84484; 85025; 85610; 85730; 87635; 93005; J1030; J7030